=== PATIENT | female | born 1960 | race Caucasian/White ===

== ENCOUNTER → 2017-06-29 | Outpatient (CLI) | payer OTHER, SELFPAY | END | disposition home or self-care (01) | LOC: SHCH 11:27 | PROVIDERS: ATTEND Internal Medicine Cardiovascular Disease | DX: I65.23 Occlusion and stenosis of bilateral carotid arteries (principal); I10 Essential (primary) hypertension | CPT/HCPCS: 93880 ==

== ENCOUNTER → 2018-08-31 | Outpatient (CLI) | payer OTHER ==
[~2018-08-31] MED LIST: IOHEXOL-350 50ML VIAL IV ONE
== END | disposition home or self-care (01) ==
LOC: RAH 07:35
PROVIDERS: ATTEND Internal Medicine Cardiovascular Disease
DX: I67.1 Cerebral aneurysm, nonruptured (principal); I65.21 Occlusion and stenosis of right carotid artery
CPT/HCPCS: 70496; 70498; Q9967

== ENCOUNTER → 2022-04-16 | Outpatient (CLI) | payer OTHER | END | disposition home or self-care (01) | LOC: SHCH 13:12 | PROVIDERS: ATTEND Internal Medicine Cardiovascular Disease | DX: I65.22 Occlusion and stenosis of left carotid artery (principal); I70.8 Atherosclerosis of other arteries; Z95.828 Presence of other vascular implants and grafts | CPT/HCPCS: 93880 ==

== ENCOUNTER → 2022-04-22 | Outpatient (CLI) | payer OTHER ==
[2022-04-22 12:17] LABS: CREATININE 0.8 mg/dL (0.5-1.5); POTASSIUM 4.6 mmol/L (3.5-5.1); TOTAL PROTEIN, SERUM 7.4 g/dL (6.0-8.3)
== END | disposition home or self-care (01) ==
LOC: LAB 08:54
PROVIDERS: ATTEND Internal Medicine Cardiovascular Disease
DX: I10 Essential (primary) hypertension (principal)
CPT/HCPCS: 36415; 80053

== ENCOUNTER → 2022-04-30 | Outpatient (CLI) | payer OTHER ==
[~2022-04-30] MED LIST changes: +IOHEXOL 350 MG/ML 100ML INFUS..BTL IV ONE; -IOHEXOL-350 50ML VIAL IV ONE
== END | disposition home or self-care (01) ==
LOC: RAH 08:55
PROVIDERS: ATTEND Internal Medicine Cardiovascular Disease
DX: I67.89 Other cerebrovascular disease (principal); I72.0 Aneurysm of carotid artery
CPT/HCPCS: 70496; 70498; Q9967

== ENCOUNTER 2022-06-14 07:23 | Day surgery (SDC) | payer OTHER ==
[2022-06-11 09:59] LABS: BASOPHILS % (AUTO) 0.2 % (0.0-5.0); EOSINOPHILS % (AUTO) 0.9 % (0.0-8.0); HEMATOCRIT 48.9 % (36-48); LYMPHOCYTES % (AUTO) 19.3 % (21.0-51.0); MEAN CORPUSCULAR HEMOGLOBIN 29.8 pg (27.0-33.0); MEAN CORPUSCULAR HGB CONC 32.9 g/dL (32.0-36.0); MEAN CORPUSCULAR VOLUME 90.4 fL (79-99); MONOCYTES % (AUTO) 7.6 % (3.0-13.0); NEUTROPHILS % (AUTO) 71.7 % (40.0-77.0); PLATELET COUNT (AUTO) 243 K/uL (130-400); RED BLOOD CELL COUNT(AUTO) 5.41 MIL/uL (4.00-5.50); RED CELL DISTRIBUTION WIDTH 12.6 % (11.0-15.5); WHITE BLOOD COUNT (AUTO) 8.8 K/uL (4.8-10.8)
[2022-06-11 10:01] LABS: APPEARANCE,URINE CLEAR (CLEAR); BILIRUBIN,URINE NEGATIVE (NEGATIVE); COLOR,URINE YELLOW (YELLOW); GLUCOSE, URINE (UA) NEGATIVE (NEGATIVE); KETONES,URINE NEGATIVE (NEGATIVE); LEUKOCYTE ESTERASE ,URINE NEGATIVE Leu/uL (NEGATIVE); NITRATE,URINE NEGATIVE (NEGATIVE); OCCULT BLOOD,URINE SMALL (NEGATIVE); PH,URINE 6.5 (5.0-8.0); PROTEIN,URINE NEGATIVE (NEGATIVE); UROBILINOGEN,URINE 0.2 mg/dL (0.2-1.0)
[2022-06-11 10:07] LABS: CREATININE 0.8 mg/dL (0.5-1.5); POTASSIUM 4.4 mmol/L (3.5-5.1)
[2022-06-11 10:09] LABS: INR 0.93 (0.85-1.15)
[2022-06-11 10:10] LABS: PARTIAL THROMBOPLASTIN TIME 27.8 SEC (26.3-35.5)
[2022-06-11 10:23] VITALS: BP 153/70
[2022-06-11 10:28] LABS: BACTERIA,URINE RARE /HPF (None Seen); SQUAMOUS EPITHELIAL CELL,UR RARE /HPF (0-2); WBC,URINE 0-1 /HPF (0-1)
[2022-06-11 10:45] LABS: B-TYPE NATRIURETIC PEPTIDE 17 pg/mL (0-100)
[2022-06-14] VITALS (12 sets, daily range): BP systolic 88–174; BP diastolic 38–63
[~2022-06-14] VITALS: Ht 165.1 cm; Wt 76.4 kg
[~2022-06-14 07:23] MED LIST changes: +CLOP75TA32 PO; -IOHEXOL 350 MG/ML 100ML INFUS..BTL IV ONE; +LOSA25TA41 PO; +ROSU10TA28 PO
[2022-06-14] MEDS ORDERED: SODIUM BICARB 50MEQ 50ML VIAL 50 ML ONE (09:55)
[2022-06-14] MEDS ORDERED: ISOVUE-370 50ML VIAL IV ONE (09:55)
[2022-06-14] MEDS ORDERED: MEPERIDINE-PF 25 MG/ML SYG ONE (09:55)
[2022-06-14] MEDS ORDERED: NITROGLYCERIN 50MG VIAL ONE (09:55)
[2022-06-14] MEDS ORDERED: IOHEXOL 350 MG/ML 100ML INFUS..BTL IV ONE ×2 (09:55→10:55)
[2022-06-14] MEDS ORDERED: HEPARIN 10,000 UNIT/10ML (1,000 UNIT/ML) VIAL ONE (09:55)
[2022-06-14] MEDS ORDERED: MIDAZOLAM HCL 1 MG/ML 2ML VIAL ONE (09:55)
[2022-06-14] MEDS ORDERED: LIDOCAINE HCL 400MG/20ML VIAL ONE (09:56)
[2022-06-14] MEDS ORDERED: HYDRALAZINE 20MG/ML VIAL ONE (10:40)
[2022-06-14] MEDS ORDERED: 0.9%NACL 1000ML 1,000 ML IV SCH (11:30)
[2022-06-14] MEDS ORDERED: ASPI-1443 PO (12:11)
== END 2022-06-14 17:20 | disposition home or self-care (01) ==
LOC: DAH 07:23
PROVIDERS: ATTEND Internal Medicine Cardiovascular Disease
DX: G45.8 Other transient cerebral ischemic attacks and related syndromes (principal); I73.9 Peripheral vascular disease, unspecified; Q25.49 Other congenital malformations of aorta; I70.8 Atherosclerosis of other arteries; I10 Essential (primary) hypertension; E78.5 Hyperlipidemia, unspecified; F17.200 Nicotine dependence, unspecified, uncomplicated; Z79.01 Long term (current) use of anticoagulants; Z88.6 Allergy status to analgesic agent; Z79.82 Long term (current) use of aspirin; Z79.899 Other long term (current) drug therapy
CPT/HCPCS: 80048; 83880; 85025; 85610; 85730; 81001; 36415; 71045; 93005; 37236; 36216; 75716; C1769; C1887; C1894 ×2; C1760; C1876; C1725; Q9967 ×2; J3490 ×3; J0360; J1644 ×2; J2250; J2175; A4215; A4222; A4221; A4663; A4216; A4606; Q9965; A4223 ×3; 36221; 96360; 96361; 99156; 99157

== ENCOUNTER → 2023-06-28 | Outpatient (CLI) | payer MEDICARE ==
[~2023-06-28] MED LIST changes: +ASPI-1443 PO; +METOPROLOL TARTRATE 1 MG/ML 5ML VIAL IV ONE
== END | disposition home or self-care (01) ==
LOC: RAH 09:26
PROVIDERS: ATTEND Internal Medicine Cardiovascular Disease
DX: R07.9 Chest pain, unspecified (principal); R91.8 Other nonspecific abnormal finding of lung field
CPT/HCPCS: 75574; J3490

== ENCOUNTER → 2023-07-12 | Outpatient (CLI) | payer MEDICARE ==
[~2023-07-12] MED LIST changes: -METOPROLOL TARTRATE 1 MG/ML 5ML VIAL IV ONE
== END | disposition home or self-care (01) ==
LOC: SHCH 10:35
PROVIDERS: ATTEND Internal Medicine Cardiovascular Disease
DX: I65.23 Occlusion and stenosis of bilateral carotid arteries (principal); I10 Essential (primary) hypertension; Z79.899 Other long term (current) drug therapy
CPT/HCPCS: 93880

== ENCOUNTER → 2023-09-27 | Outpatient (CLI) | payer MEDICARE ==
[~2023-09-27] MED LIST changes: +IOHEXOL-350 50ML VIAL IV ONE; -ROSU10TA28 PO; +ROSU10TA72 PO
== END | disposition home or self-care (01) ==
LOC: RAH 11:03
PROVIDERS: ATTEND Family Medicine
DX: J43.9 Emphysema, unspecified (principal); R91.8 Other nonspecific abnormal finding of lung field; D38.6 Neoplasm of uncertain behavior of respiratory organ, unspecified
CPT/HCPCS: 71260; Q9967

== ENCOUNTER 2024-11-12 06:51 | Day surgery (SDC) | payer MEDICARE ==
[2024-11-09 15:09] LABS: IMMATURE GRANULOCYTE ABSOLUTE 0.02 K/uL (0-1); NUCLEATED RED BLOOD CELLS 0.0 % (0.0-0.19); PLATELET COUNT (AUTO) 269 K/uL (130-400); RED BLOOD CELL COUNT(AUTO) 4.71 MIL/uL (4.00-5.50); RED CELL DISTRIBUTION WIDTH 12.8 % (11.0-15.5); WHITE BLOOD COUNT (AUTO) 8.4 K/uL (4.8-10.8)
[2024-11-09 15:13] LABS: APPEARANCE,URINE CLOUDY (CLEAR); GLUCOSE, URINE (UA) NEGATIVE (NEGATIVE); LEUKOCYTE ESTERASE ,URINE 500 Leu/uL (NEGATIVE); NITRATE,URINE NEGATIVE (NEGATIVE); OCCULT BLOOD,URINE NEGATIVE (NEGATIVE)
[2024-11-09 15:16] LABS: ADD UA MICROSCOPIC YES
[2024-11-09 15:19] LABS: SQUAMOUS EPITHELIAL CELL,UR FEW /HPF (0-2)
[2024-11-09 15:21] VITALS: BP 126/58; PULSE 72; RESP 18; TEMP 97.2
[2024-11-09 15:22] LABS: INR 1.0 (0.85-1.15)
[2024-11-09 15:42] LABS: CREATININE 1.1 mg/dL (0.5-1.0); GLOMERULAR FILTR. RATE CALC 55.0 mL/min (>90); GLUCOSE,RANDOM 90.0 mg/dL (70-105); SODIUM SERUM 142.0 mmol/L (136-145); UREA NITROGEN, BLOOD 18.0 mg/dL (7-18)
--- NOTE | 2024-11-09 15:52 | HMCIMG ---
EXAM: CR Chest, 1 View. CLINICAL HISTORY: PRE OP COMPARISON: Radiograph dated June 11, 2022 FINDINGS: LUNGS: The lungs show no infiltrate or other acute finding. PLEURAL SPACES: No evidence of pleural effusion or pneumothorax. MEDIASTINUM: Stent noted overlying the thoracic aortic arch. Cardiac size and mediastinal contours within normal limits. BONES: No aggressive appearing osseous lesion seen. IMPRESSION: No acute cardiopulmonary pathology is evident. /[place]
--- NOTE | 2024-11-09 16:31 | NUR ---
REPORT REPORTED UA TO JAMAL HOLMAN NP. OK TO PROCEED AND SHE IS GOING TO CALL PHARMACY FOR ANTIBIOTICS Addendum: 11/09/24 at 1642 by AURELIO VEGA RN RN PT NOTIFIED ABOUT ABX
--- NOTE | 2024-11-09 21:32 | EKG ---
[facility] Test Date: 2024-11-09 Test Time: 14:54:06 Pat Name: ISIAH KERR Department: [facility] Room: Gender: F Template Maker: [id number] : 1960 Requested By: Brad JOHNSON Order Number: [id number] Reading MD: James Ho Measurements Intervals [place] Rate: 69 P: 57 OK: 170 QRS: 69 QRSD: 98 T: 53 QT: 390 QTc: 418 Interpretive Statements Sinus rhythm Anteroseptal infarct, old Compared to ECG 06/11/2022 09:49:23 No significant changes Electronically Signed On 11-10-2024 19:49:12 CDT by James Ho Please click the below link to view image of tracing.
[~2024-11-12] VITALS: Ht 165.1 cm; Wt 72.6 kg
[2024-11-12] VITALS (13 sets, daily range): BP systolic 85–140; BP diastolic 42–66; PULSE 74–99; RESP 12–20; TEMP 97.2–98
[~2024-11-12 06:51] MED LIST changes: +ASPI-1005 PO; -ASPI-1443 PO; +FENO145T26 PO; +IMMUNO PO; -IOHEXOL-350 50ML VIAL IV ONE; +b complex PO; +coq10 PO; +cranberry PO; +vit d3 PO
[2024-11-12] MEDS ORDERED: SODIUM BICARB 50MEQ 50ML VIAL 50 ML ONE (07:30)
[2024-11-12] MEDS ORDERED: LIDOCAINE HCL 400MG/20ML VIAL ONE ×2 (07:30→07:43)
[2024-11-12] MEDS ORDERED: IODIXANOL 320 MG/ML 100 ML VIAL ONE ×2 (07:30→08:40)
[2024-11-12] MEDS ORDERED: HEParin-NS 1,000 UNIT/500 ML 1,000 ML IV ONE (07:31)
[2024-11-12] MEDS ORDERED: NITROGLYCERIN 50MG VIAL ONE (07:31)
[2024-11-12] MEDS: 0.9%NACL 1000ML 1,000 ML IV SCH (07:45)
[2024-11-12] MEDS ORDERED: MIDAZOLAM HCL 1 MG/ML 2ML VIAL ONE ×6 (07:57→09:56)
[2024-11-12] MEDS ORDERED: HEParin-NS 1,000 UNIT/500 ML 500 ML IV ONE (09:35)
[2024-11-12] MEDS ORDERED: 0.9%NACL 1000ML 1,000 ML IV SCH (10:30)
[2024-11-12] MEDS ORDERED: ATROPINE 1MG SYG IVP ONE (11:02)
--- NOTE | 2024-11-12 11:27 | CCATH ---
PROCEDURE NOTE PROCEDURES: * Placement of pigtail catheter in the abdominal aorta. * Abdominal aortogram. * Selective right and left common and external iliac artery angiogram. * Selective right and left common femoral artery angiogram. * Balloon angioplasty of the right and left common iliac artery ostia. * Balloon angioplasty of the left external iliac artery. * Placement of a balloon expandable stent in the right and left ostial iliac arteries. * Placement of a self-expanding stent in the left common extending to the left external iliac artery. * Conscious sedation for 90 minutes. INDICATIONS: * Severe peripheral vascular disease. * Disabling claudication. COMPLICATIONS: None. TOTAL CONTRAST: 140 mL DESCRIPTION OF PROCEDURE: The patient was taken to the Cardiac Catheterization Lab after appropriate operative consents were signed. She was prepped and draped in the usual fashion. After conscious sedation was administered, the right and left common femoral artery regions were infiltrated with 2% Xylocaine without epinephrine. Ultrasound guidance was utilized and we had a great deal of difficulty identifying the left common femoral artery because of the degree of stenosis in the common iliac with minimal perfusion of the left common femoral artery. After full sedation, we were finally able to access the left common femoral artery and advanced a 6-Upper Sorbian sheath in retrograde fashion with modified Seldinger technique. We similarly advanced the sheath in the right common femoral artery retrograde fashion with modified Seldinger technique. At this point, a 0.035 wire was advanced from the right common femoral artery and placement of the abdominal aorta followed by placing a Edmond's Wilson Omniflush catheter. This was utilized to perform an abdominal aortogram and digital acquisition AV projection. This was identified an ecstatic distal abdominal aorta; however, it was not clearly aneurysmal. The ostium of the right and left iliac artery had severe stenosis with the left common iliac artery having a critical stenotic lesion at 99% with TREVIN 2 flow in the left external iliac. The right ostial iliac artery had a 70% stenotic lesion. Both those vessels were calcified. The left common iliac lesion extended all the way to the left extended iliac artery; however, it was not as severely stenotic as the ostium was. After full heparinization, we were able to advance two wires, one from the right and one from the left. We utilized an 0.035 Glidewire on the left to be able to cross the lesion. We then proceeded with placement of two 6-mm balloons, which were inflated to nominal pressure at the ostium of the aortoiliac junction bilaterally. This was followed by placement of an 8 x 27 VisiPro balloon expandable stent, a normal pressure on the oscillator on the right with simultaneous placement of an 8 x 27 VisiPro balloon expandable stent on the left. The stents were deployed simultaneously at the level of the ostium. We were able to then identify ongoing disease in the rest of the left common iliac artery extending into the external iliac artery. This was managed with advancement of a 10 x 80 self-expanding stent, which was deployed from the previously deployed left common iliac artery stent extending all the way traversing the origin of the left internal iliac and being placed in the proximal left external iliac artery. This was post dilated with a 7-mm balloon to normal pressures. At this point, the pigtail catheter was then advanced once more and placed in the distal abdominal aorta. Imaging was obtained and evidence of patency of both iliac arteries and external iliac arteries with good flow to the common femorals bilaterally. At this point, the procedure was completed, a basket was utilized with adequate hemostasis. The patient tolerated the procedure well and left the cardiac catheterization lab in stable condition. FINAL IMPRESSION: * Critical iliac artery stenosis with severe, disabling claudication. * Successful balloon angioplasty of both common iliac artery ostia with a 6-mm balloon followed by placement of an 8 x 17 balloon expandable stent on the right and an 8 x 27 balloon expandable stent on the left as well as an overlapping self-expanding stent from the left common iliac previously deployed stent to the left external iliac artery, post dilated with a 7-mm balloon with good angiographic results. PLAN: Continue to optimize medical management. We will address the issue of the brachiocephalic in-stent restenosis via a right radial or right brachial approach at a different setting. TID: [id number] RECEIPT: [id number]
--- NOTE | 2024-11-12 14:24 | NUR ---
REPORT HORACE VILLANUEVA GIVEN SBAR REPORT IN NURSE'S STATION. BILATERAL GROINS DISCOLORED. NO ACTIVE BLEEDING NOTED NO ACTIVE DRAINAGE NOTED. NO REDNESS OR SWELLING TO BILATERAL GROINS. BOTH GROINS SOFT TO TOUCH. CALL LIGHT AT BEDSIDE. PATIENT AWAKE AND ALERT X4.
--- NOTE | 2024-11-12 14:39 | NUR ---
Femoral dressings clean, dry and intact. No bleeding, bruising, or issue. No evidence of hematoma. Educated Patient of importance of not bending right leg and POC until discharge. Voiced understanding in full. NS at 150 mls/ hr per orders. Used bedpan and attempted to clean up self and became exerted. Now restful and very pleasant. Denies any pain or pressure. Pedal pulses intact. Sr's up x 2. Call light in reach. Reported off in full to oncoming RNBeti.
== END 2024-11-12 18:53 | disposition home or self-care (01) ==
LOC: DAH 06:51
PROVIDERS: ATTEND Internal Medicine Cardiovascular Disease
DX: I70.213 Atherosclerosis of native arteries of extremities with intermittent claudication, bilateral legs (principal); I10 Essential (primary) hypertension; E78.5 Hyperlipidemia, unspecified; I25.10 Atherosclerotic heart disease of native coronary artery without angina pectoris; Z88.5 Allergy status to narcotic agent; Z85.118 Personal history of other malignant neoplasm of bronchus and lung; F17.200 Nicotine dependence, unspecified, uncomplicated; Z79.01 Long term (current) use of anticoagulants; Z79.899 Other long term (current) drug therapy
CPT/HCPCS: 80048; 83880; 85025; 85610; 85730; 87086; 81001; 36415; 71045; 93005; 75625; 75716; 37221; 37223; 99156; 99157 ×5; 85347 ×2; A4223 ×3; A4554; C1887 ×2; C1769 ×4; C1894 ×4; C1760 ×2; C1725 ×2; C1876 ×3; J3010 ×2; J3490 ×4; J0461; J1644 ×3; J2250 ×6; J2405; Q9967 ×2; A4215; A4335; A4222; A4221; A4663; A4216; A4606; 96360; 96361

== ENCOUNTER 2024-12-31 05:55 | Day surgery (SDC) | payer MEDICARE ==
[2024-12-28 09:53] LABS: IMMATURE GRANULOCYTE ABSOLUTE 0.01 K/uL (0-1); NUCLEATED RED BLOOD CELLS 0.0 % (0.0-0.19); PLATELET COUNT (AUTO) 254 K/uL (130-400); RED BLOOD CELL COUNT(AUTO) 4.52 MIL/uL (4.00-5.50); RED CELL DISTRIBUTION WIDTH 12.8 % (11.0-15.5); WHITE BLOOD COUNT (AUTO) 5.6 K/uL (4.8-10.8)
--- NOTE | 2024-12-28 09:54 | EKG ---
[facility] Test Date: 2024-12-28 Test Time: 09:37:47 Pat Name: ISIAH KERR Department: [facility] Room: [facility] Gender: F Mri Special Procedures Technologist: [id number] : 1960 Requested By: Brad JOHNSON Order Number: [id number] Reading MD: Zen El Measurements Intervals [place] Rate: 60 P: 41 DC: 158 QRS: 60 QRSD: 90 T: 36 QT: 399 QTc: 398 Interpretive Statements Sinus rhythm Low voltage, precordial leads Compared to ECG 11/09/2024 14:54:06 Low QRS voltage now present Myocardial infarct finding no longer present Electronically Signed On 12-31-2024 10:29:07 CDT by Zen El Please click the below link to view image of tracing.
[2024-12-28 10:01] LABS: APPEARANCE,URINE CLEAR (CLEAR); GLUCOSE, URINE (UA) NEGATIVE (NEGATIVE); LEUKOCYTE ESTERASE ,URINE 500 Leu/uL (NEGATIVE); NITRATE,URINE NEGATIVE (NEGATIVE); OCCULT BLOOD,URINE NEGATIVE (NEGATIVE)
[2024-12-28 10:03] LABS: ADD UA MICROSCOPIC YES
[2024-12-28 10:03] LABS: CREATININE 1.0 mg/dL (0.5-1.0); GLOMERULAR FILTR. RATE CALC 62.0 mL/min (>90); GLUCOSE,RANDOM 82.0 mg/dL (70-105); SODIUM SERUM 136.0 mmol/L (136-145); UREA NITROGEN, BLOOD 19.0 mg/dL (7-18)
[2024-12-28 10:04] LABS: INR 1.0 (0.85-1.15)
[2024-12-28 10:18] LABS: SQUAMOUS EPITHELIAL CELL,UR FEW /HPF (0-2)
[2024-12-28 10:23] VITALS: BP 118/60; PULSE 61; RESP 18; TEMP 97.3
--- NOTE | 2024-12-28 11:27 | HMCIMG ---
EXAM: CR Chest, 1 View. CLINICAL HISTORY: PRE-OP COMPARISON: Radiograph dated November 09, 2024 FINDINGS: LUNGS: There is no mass, infiltrate, or acute pulmonary abnormality. PLEURAL SPACES: No evidence of pleural effusion or pneumothorax. MEDIASTINUM: Cardiac size and mediastinal contours within normal limits. Vascular stent overlies the arch of the thoracic aorta. BONES: No acute osseous abnormality. IMPRESSION: No acute cardiopulmonary pathology is evident. /[place]
--- NOTE | 2024-12-28 13:35 | NUR ---
report reported ua to jhonny perkins np. received orders for rocephin 1gm iv push slow x1 upon arrival on procedure day. Addendum: 12/28/24 at 1336 by AURELIO VEGA RN RN urine culture still pending. please follow up am of procedure
[~2024-12-31] VITALS: Ht 165.1 cm; Wt 72.7 kg
[2024-12-31] VITALS (10 sets, daily range): BP systolic 105–149; BP diastolic 41–62; PULSE 53–72; RESP 10–18; TEMP 97.6–97.7
[~2024-12-31 05:55] MED LIST changes: -ASPI-1005 PO; -IMMUNO PO; -b complex PO; -coq10 PO; -cranberry PO; -vit d3 PO
[2024-12-31] MEDS: cefTRIAXone 1G VIAL 1 GM ONE (06:51)
--- NOTE | 2024-12-31 06:51 | NUR ---
ROCEPHINE GIVEN 1GM IV PUSH SLOWLY UPON ARRIVAL PER JAMAL HOLMAN HELP DESK REP. GIVEN IN LEFT HAND IV 20G.
[2024-12-31] MEDS: 0.9%NACL 1000ML 1,000 ML IV SCH (06:52)
[2024-12-31] MEDS ORDERED: LIDOCAINE HCL 400MG/20ML VIAL ONE (09:30)
[2024-12-31] MEDS ORDERED: SODIUM BICARB 50MEQ 50ML VIAL 50 ML ONE (09:30)
[2024-12-31] MEDS ORDERED: HEParin-NS 1,000 UNIT/500 ML 1,000 ML IV ONE (09:31)
[2024-12-31] MEDS ORDERED: IOHEXOL 350 MG/ML 100ML INFUS..BTL IV ONE (09:31)
[2024-12-31] MEDS ORDERED: NITROGLYCERIN 50MG VIAL ONE (09:31)
[2024-12-31] MEDS ORDERED: ASPI-1719 PO (09:34)
[2024-12-31] MEDS ORDERED: MIDAZOLAM HCL 1 MG/ML 2ML VIAL ONE ×6 (09:52→11:51)
[2024-12-31] MEDS ORDERED: HEParin-NS 1,000 UNIT/500 ML 500 ML IV ONE (11:07)
[2024-12-31] MEDS ORDERED: ATROPINE 1MG SYG IVP ONE (11:11)
[2024-12-31] MEDS ORDERED: 0.9%NACL 1000ML 1,000 ML IV SCH (13:00)
--- NOTE | 2024-12-31 13:11 | CCATH ---
PROCEDURES: 1. Selective brachiocephalic artery angiogram. 2. Balloon angioplasty of the brachiocephalic artery. 3. Stent placement of the brachiocephalic artery. 4. Conscious sedation for 90 minutes. INDICATIONS: 1. Severe peripheral vascular disease. 2. Right arm claudication. 3. Subclavian steal syndrome. COMPLICATIONS: None. TOTAL CONTRAST: Approximately 120 mL. APPROACH: Right femoral approach. DESCRIPTION OF PROCEDURE: The patient was taken to the cardiac clinical genetics laboratory chief after the appropriate operative consents were signed. She was prepped and draped in the usual fashion. After conscious sedation was administered, the right common femoral artery region was infiltrated with 2% Xylocaine without epinephrine. At this point, a 6-Yakut sheath was advanced in a retrograde fashion by the modified Seldinger technique. An FR4 6-Yakut guide catheter was selected and advanced over an indwelling wire and engaged in the brachiocephalic artery. It was quite difficult to cannulate the brachiocephalic artery because the patient had a stent in the brachiocephalic artery with minimal strut protrusion into the aorta. Multiple attempts were utilized and we managed to get the wire across into the subclavian artery through the brachiocephalic artery; however, on multiple occasions, it was evident that we had cannulated through the struts and we were not able to advance the sheath, which was exchanged and a 6 x 90 was utilized. At this point, we utilized a 6-Yakut diagnostic sidewinder and we were able to cannulate the main brachiocephalic artery through the sheath and into the main proper lumen as opposed to the struts. We then were able to advance the catheter and there was extreme pressure dampening. Angiography confirmed the presence of critical in-stent restenosis with post stenotic segment that is about approximately 80%. At this point, we were able to utilize an Amplatz super stiff wire to help advance the sheath into the vessel. We utilized a 4-mm balloon initially, then 6-mm balloon. We were then able to advance the sheath and placed an 8 x 37 VisiPro stent, which was deployed at 8.26 mm size. This was post dilated with an 8 x 40 noncompliant balloon to 14 atmospheres. Final angiographic result was good. The patient had Angio-Seal utilized. She tolerated the procedure well and left the cardiac clinical genetics laboratory chief in stable condition. FINAL IMPRESSION: 1. Severe peripheral vascular disease. 2. Status post remote angioplasty and stent placement of the brachiocephalic artery with critical in-stent restenosis and post stent stenosis. 3. Successful balloon angioplasty and stent placement with a VisiPro 8 x 37 mm dilated with an 8 mm balloon noncompliant to 14 atmospheres with 8.26 mm final size with good final angiographic results. PLAN: Continue to optimize medical management. Continue to career and guidance counselor the patient in regard to smoking cessation. TID: [id number] RECEIPT: [id number]
--- NOTE | 2024-12-31 14:18 | NUR ---
H[employer]EL [employer] FLOORPERSON SITE. RED ACTIVE DRAINAGE NOTED TO DRESSING. D-STAT APPLIED. HELD PRESSURE FOR 20 MINUTES. CIRCLED DRAINAGE SPOT ON DRESSING. NO REDNESS OR SWELLING NOTED. NO ACTIVE DRAINAGE OR BLEEDING NOTED. DRESSING DRY AND INTACT.
--- NOTE | 2024-12-31 17:00 | NUR ---
HANDOFF REPORT RECEIVED REPORT FROM ASHER BHATTI USING SBAR AT PATIENT'S BEDSIDE. PATIENT AAOX3, VITAL SIGNS STABLE. DRESSING TO RIGHT GROIN DRY/INTACT. SPOUSE AT BEDSIDE.
--- NOTE | 2024-12-31 18:45 | NUR ---
PATIENT DISCHARGED FROM FACILITY VIA WHEELCHAIR AND ASSISTED INTO PRIVATE VEHICLE DRIVEN BY SPOUSE
== END 2024-12-31 18:45 | disposition home or self-care (01) ==
LOC: DAH 05:55
PROVIDERS: ATTEND Internal Medicine Cardiovascular Disease
DX: R94.39 Abnormal result of other cardiovascular function study (principal); I70.218 Atherosclerosis of native arteries of extremities with intermittent claudication, other extremity; G45.8 Other transient cerebral ischemic attacks and related syndromes; I25.10 Atherosclerotic heart disease of native coronary artery without angina pectoris; I10 Essential (primary) hypertension; E78.00 Pure hypercholesterolemia, unspecified; Z79.01 Long term (current) use of anticoagulants; Z88.5 Allergy status to narcotic agent; Z79.899 Other long term (current) drug therapy
CPT/HCPCS: 80048; 83880; 85025; 85610; 85730; 87086 ×2; 81001; 36415; 71045; 93005; 37236; 36215; 99156; 99157 ×6; 85347; 87186; C1887 ×2; C1769 ×2; C1894 ×3; C1760; C1893 ×2; C1725 ×3; C1876; Q9965; J3010 ×3; J3490 ×3; J7030; J0696; J1644 ×3; J2250 ×6; Q9967; A4215; A4222; A4663; A4216; A4606; A4223 ×3; A4221; J0461